=== PATIENT | male | born 1960 | race African-American/Black ===

== ENCOUNTER 2024-08-01 11:00 | Outpatient (CLI) | payer OTHER, MEDICAID | END 2024-08-01 11:01 | disposition home or self-care (01) | LOC: PET 11:00 | PROVIDERS: ATTEND Internal Medicine Hematology & Oncology | DX: C76.0 Malignant neoplasm of head, face and neck (principal); R91.1 Solitary pulmonary nodule | CPT/HCPCS: 78815; A9552 ==

== ENCOUNTER 2024-10-19 01:20 | Observation (INO) | payer OTHER ==
[2024-10-19] MEDS ORDERED: Morphine 4 MG/ML VIAL ONE ×2 (01:49→02:29)
[2024-10-19 01:54] LABS: #Basophils 0.04 10x3/uL (0.0-0.2); %Basophils 0.7 % (0.0-1.0); %Eosinophils 1.6 % (0.0-10.0); %Lymphocytes 48.6 % (21.0-51.0); %Monocytes 10.6 % (0.0-10.0); %Neutrophils 38.3 % (42.0-75.0); Hematocrit 38.4 % (42.0-52.0); Hemoglobin 12.6 g/dL (14.0-18.0); Mean Corpuscular HGB CONC 32.8 g/dL (32.0-36.0); Mean Corpuscular Hemoglobin 30.1 pg (27.0-31.0); Mean Corpuscular Volume 91.6 fL (78.0-98.0); Mean Platelet Volume 9.7 fL (7.4-10.4); Platelet Count 216 10x3/uL (130-400); RBC Distribution Width 15.7 % (11.5-14.5); Red Blood Cell (RBC) Count 4.19 mill/uL (4.70-6.10)
[2024-10-19 02:07] LABS: ALT (SGPT) 26 U/L (8-55); AST (SGOT) 46 U/L (5-34); Albumin 3.3 g/dL (3.4-4.8); Alkaline Phosphatase 88 U/L (40-110); Anion Gap 20 mmol/L (10-20); BUN (Urea Nitrogen) 16 mg/dL (8.4-25.7); Bilirubin, Total 0.6 mg/dL (0.2-1.2); Calc. Creatinine Clearance 0 mL/min (70-130); Calcium 9.2 mg/dL (7.8-10.44); Carbon Dioxide 17 mmol/L (23-31); Chloride 103 mmol/L (98-107); Estimated GFR 61; Glucose 100 mg/dL (80-115); Potassium 4.6 mmol/L (3.5-5.1); Protein, Total 8.3 g/dL (5.8-8.1); Sodium 135 mmol/L (136-145)
[2024-10-19] MEDS ORDERED: hydrALAZINE 20 MG/ML VIAL ONE ×2 (05:22→06:29)
[2024-10-19 06:24] LABS: Bilirubin Negative (Negative); Blood, Urine Negative (Negative); CAUTI Indications for Culture Dysuria,urgency,freq; Clarity Clear (Clear); Glucose, Urine (Dipstick) Normal (Negative); Ketone, Urine Negative (Negative); Leukocyte 75 Leu/uL (Negative); Nitrite Negative (Negative); Protein, Urine (Dipstick) 20 mg/dL (Neg-Trace); RBC/HPF 0-3 HPF (0-3); Specific Gravity, Urine 1.031 (1.002-1.036); Squamous Epithelial None Seen HPF (0-3); Urobilinogen Normal mg/dL (Less than 2); WBC/HPF 21-50 HPF (0-3); pH, Urine 7.5 (5.0-9.0)
[2024-10-19] MEDS ORDERED: Morphine 2 MG/ML VIAL ONE ×2 (06:29→09:04)
[2024-10-19 06:30] LABS: Lactic Acid 1.32 mmol/L (0.5-2.2)
[2024-10-19 06:53] LABS: Bacteria/HPF 1+ HPF (None Seen)
[2024-10-19 06:54] LABS: Urine Culture Reflex Yes Yes
[2024-10-19] MEDS ORDERED: Sodium Chloride 0.9% 100 ML ONE (08:03)
[2024-10-19] MEDS ORDERED: cefTRIAXone (ROCEPHIN) 2 GM VIAL ONE (08:03)
[2024-10-19] MEDS ORDERED: Ondansetron PF 4 MG/2 ML Vial ONE (09:04)
[2024-10-19] MEDS ORDERED: Acetaminophen 325 MG TAB PO PRN (10:36)
[2024-10-19] MEDS ORDERED: Acetaminophen 650 MG Suppository PR PRN (10:36)
[2024-10-19] MEDS ORDERED: Ondansetron PF 4 MG/2 ML Vial IVP PRN (11:16)
[2024-10-19] MEDS ORDERED: Ondansetron ODT 4 MG TAB PO PRN (11:16)
[2024-10-19] MEDS ORDERED: Magnesium Citrate 300 ML BOT PO SCH (11:30)
[2024-10-19] MEDS ORDERED: Milk Of Magnesia 30 ML UDCUP PO SCH (11:30)
[2024-10-19] MEDS: Bisacodyl 10 MG SUPP PR SCH (12:10)
[2024-10-19] MEDS: GoLYTELY 4,000 ml Bottle PO SCH (12:10)
[2024-10-19] MEDS: Mineral Oil ENEMA PR SCH (12:10)
[2024-10-19] MEDS ORDERED: Iopamidol-370 76% 500 ML MDV (1 ML CHARGE) ONE (15:10)
[2024-10-19 16:22] VITALS: BMI 18.6
[2024-10-20] MEDS ORDERED: Ipratropium/Albuterol 3 ML NEB NEB PRN (03:54)
[2024-10-20] MEDS: cefTRIAXone\\ROCEPHIN 1 GM in Sodium Chloride 0.9% 100 ML IVPB SCH (06:55)
[2024-10-20 07:48] LABS: #Basophils 0.04 10x3/uL (0.0-0.2); %Basophils 0.8 % (0.0-1.0); %Eosinophils 2.5 % (0.0-10.0); %Lymphocytes 44.4 % (21.0-51.0); %Monocytes 12.2 % (0.0-10.0); %Neutrophils 39.9 % (42.0-75.0); Hematocrit 33.3 % (42.0-52.0); Hemoglobin 11.1 g/dL (14.0-18.0); Mean Corpuscular HGB CONC 33.3 g/dL (32.0-36.0); Mean Corpuscular Hemoglobin 30.7 pg (27.0-31.0); Mean Platelet Volume 9.8 fL (7.4-10.4); Platelet Count 182 10x3/uL (130-400); RBC Distribution Width 16.1 % (11.5-14.5); Red Blood Cell (RBC) Count 3.62 mill/uL (4.70-6.10)
[2024-10-20 08:03] LABS: Anion Gap 14 mmol/L (10-20); BUN (Urea Nitrogen) 10 mg/dL (8.4-25.7); Calc. Creatinine Clearance 76 mL/min (70-130); Calcium 8.4 mg/dL (7.8-10.44); Carbon Dioxide 22 mmol/L (23-31); Chloride 104 mmol/L (98-107); Estimated GFR 96; Glucose 78 mg/dL (80-115); Potassium 3.5 mmol/L (3.5-5.1); Sodium 136 mmol/L (136-145)
[2024-10-20] MEDS: cloNIDine 0.2 MG TAB PO SCH (09:26)
[2024-10-20] MEDS: Levothyroxine Sodium 25 MCG TAB PO SCH (09:26)
[2024-10-20 13:17] VITALS: BP 128/87; TEMP 98.9
== END 2024-10-20 11:20 | disposition home or self-care (01) ==
LOC: ERS 01:20 → T4-A 10:09
PROVIDERS: ADMIT Internal Medicine; ATTEND Internal Medicine
DX: N39.0 Urinary tract infection, site not specified (principal); K56.41 Fecal impaction; I10 Essential (primary) hypertension; E03.9 Hypothyroidism, unspecified; E44.0 Moderate protein-calorie malnutrition; E88.09 Other disorders of plasma-protein metabolism, not elsewhere classified; Z85.828 Personal history of other malignant neoplasm of skin; Z88.0 Allergy status to penicillin; Z79.890 Hormone replacement therapy; Z79.2 Long term (current) use of antibiotics; Z79.899 Other long term (current) drug therapy
CPT/HCPCS: 74177; 80048; 81001; 83605; 85025; 87077; 87086; 87186; 93005; 96376; G0378 ×3; J0360; J0696 ×2; J1642; J2270; J2272; J2405; Q9967; 36415; 80053; 84443; 96374; 96375

== ENCOUNTER 2025-06-28 13:53 | Outpatient (CLI) | payer OTHER | END 2025-06-28 13:54 | disposition home or self-care (01) | LOC: MRI 13:53 | PROVIDERS: ATTEND Internal Medicine Hematology & Oncology | DX: C76.0 Malignant neoplasm of head, face and neck (principal) | CPT/HCPCS: 70553; 76376 ==

== ENCOUNTER 2025-07-16 11:00 | Outpatient (CLI) | payer OTHER, MEDICAID | END 2025-07-16 11:01 | disposition home or self-care (01) | LOC: PET 11:00 | PROVIDERS: ATTEND Internal Medicine Hematology & Oncology | DX: C76.0 Malignant neoplasm of head, face and neck (principal); M89.9 Disorder of bone, unspecified; R93.89 Abnormal findings on diagnostic imaging of other specified body structures | CPT/HCPCS: 78815; A9552 ==

== ENCOUNTER 2025-08-24 09:03 | Inpatient (IN) | payer OTHER, MEDICAID ==
[2025-08-24] MEDS ORDERED: Ondansetron PF 4 MG/2 ML Vial ONE (09:52)
[2025-08-24 10:07] LABS: #Basophils 0.04 10x3/uL (0.0-0.2); #Eosinophils 0.19 10x3/uL (0.0-0.7); #Monocytes 0.58 10x3/uL (0.11-0.59); #Neutrophils 3.04 10x3/uL (1.40-6.50); %Basophils 0.7 % (0.0-1.0); %Eosinophils 3.3 % (0.0-10.0); %Lymphocytes 33.3 % (21.0-51.0); %Monocytes 10.0 % (0.0-10.0); %Neutrophils 52.4 % (42.0-75.0); Hematocrit 41.2 % (42.0-52.0); Hemoglobin 13.4 g/dL (14.0-18.0); Mean Corpuscular Hemoglobin 29.9 pg (27.0-31.0); Mean Corpuscular Volume 92.0 fL (78.0-98.0); Platelet Count 234 10x3/uL (130-400); Red Blood Cell (RBC) Count 4.48 mill/uL (4.70-6.10); White Blood Cell (WBC) Count 5.80 10x3/uL (4.8-10.8)
[2025-08-24 10:22] LABS: Actual Bicarbonate (HCO3v) 20.9 mEq/L (22-28); Base Excess -2.8 mEq/L (-2.0 to +3.0); Calcium, Ionized (venous) 1.05 mmol/L (1.16-1.32); Chloride (VBG) 99 mmol/L (98-106); Hematocrit-VBG 45 % (42.0-52.0); Hemoglobin (Hb) 15.2 g/dL (12.6-17.4); Potassium (VBG) 3.86 mmol/L (3.70-5.30); Sodium 139 mmol/L (133-146)
[2025-08-24 10:26] LABS: ALT (SGPT) 17 U/L (Less than 45); AST (SGOT) 36 U/L (11-34); Albumin 4.3 g/dL (3.1-4.5); Alkaline Phosphatase 81 U/L (40-110); Anion Gap 24 mmol/L (10-20); BUN (Urea Nitrogen) 13 mg/dL (8.4-25.7); Bilirubin, Total 0.8 mg/dL (0.3-1.2); Calc. Creatinine Clearance 0 mL/min (70-130); Calcium 9.6 mg/dL (7.8-10.44); Carbon Dioxide 18 mmol/L (23-31); Chloride 98 mmol/L (98-107); Globulin 4.3 g/dL (2.4-3.5); Glucose 90 mg/dL (80-115); Potassium 3.8 mmol/L (3.5-5.1); Sodium 136 mmol/L (136-145)
[2025-08-24] MEDS ORDERED: Droperidol 5 MG/2 ML VIAL ONE (10:29)
[2025-08-24] MEDS ORDERED: Cefepime 2 GM VIAL ONE (10:49)
[2025-08-24] MEDS ORDERED: Vancomycin 1 GM/200 ML (FROZEN) BAG ONE (10:58)
[2025-08-24 12:05] LABS: Bacteria/HPF None Seen HPF (None Seen); CAUTI Indications for Culture Acute Hematuria; Glucose, Urine (Dipstick) Normal (Negative); Leukocyte Negative Leu/uL (Negative); Protein, Urine (Dipstick) Negative (Neg-Trace); RBC/HPF None Seen HPF (0-3); Specific Gravity, Urine 1.017 (1.002-1.036); WBC/HPF 0-3 HPF (0-3)
[2025-08-24 12:08] LABS: Urine Culture Reflex No No
[2025-08-24] MEDS ORDERED: Iopamidol-370 76% 500 ML MDV (1 ML CHARGE) ONE (14:30)
[2025-08-24] MEDS ORDERED: Acetaminophen 325 MG TAB PO PRN (14:31)
[2025-08-24] MEDS ORDERED: Ondansetron PF 4 MG/2 ML Vial IVP PRN (14:45)
[2025-08-24 16:55] VITALS: BMI 17.4
[2025-08-24] MEDS: Lactulose 20 GM (30 mL) UDCUP PO SCH (17:32)
[2025-08-24] MEDS: oxyCODONE 5 MG TAB PO SCH (20:05)
[2025-08-24] MEDS: carBAMazepine 200 MG TAB PO SCH (20:06)
[2025-08-24] MEDS: Mineral Oil ENEMA PR SCH (21:56)
[2025-08-24] MEDS: Lisinopril 20 MG TAB PO SCH (21:57)
[2025-08-25 05:26] LABS: #Basophils 0.05 10x3/uL (0.0-0.2); #Eosinophils 0.19 10x3/uL (0.0-0.7); #Monocytes 0.71 10x3/uL (0.11-0.59); #Neutrophils 2.00 10x3/uL (1.40-6.50); %Basophils 1.0 % (0.0-1.0); %Eosinophils 3.9 % (0.0-10.0); %Lymphocytes 40.0 % (21.0-51.0); %Monocytes 14.4 % (0.0-10.0); %Neutrophils 40.5 % (42.0-75.0); Hematocrit 37.6 % (42.0-52.0); Hemoglobin 12.2 g/dL (14.0-18.0); Mean Corpuscular Hemoglobin 29.7 pg (27.0-31.0); Mean Corpuscular Volume 91.5 fL (78.0-98.0); Platelet Count 167 10x3/uL (130-400); Red Blood Cell (RBC) Count 4.11 mill/uL (4.70-6.10); White Blood Cell (WBC) Count 4.93 10x3/uL (4.8-10.8)
[2025-08-25 05:46] LABS: Vancomycin, Random 14.8 ug/mL (See Comment)
[2025-08-25 05:48] LABS: ALT (SGPT) 15 U/L (Less than 45); AST (SGOT) 31 U/L (11-34); Albumin 3.6 g/dL (3.1-4.5); Alkaline Phosphatase 63 U/L (40-110); Anion Gap 14 mmol/L (10-20); BUN (Urea Nitrogen) 10 mg/dL (8.4-25.7); Bilirubin, Total 0.6 mg/dL (0.3-1.2); Calc. Creatinine Clearance 46 mL/min (70-130); Calcium 8.8 mg/dL (7.8-10.44); Carbon Dioxide 25 mmol/L (23-31); Chloride 103 mmol/L (98-107); Globulin 3.5 g/dL (2.4-3.5); Glucose 79 mg/dL (80-115); Potassium 4.8 mmol/L (3.5-5.1); Sodium 137 mmol/L (136-145)
[2025-08-25] MEDS: cloNIDine 0.2mg/24 Hour PATCH TD SCH (09:53)
[2025-08-25] MEDS: Enoxaparin 40 MG (0.4 mL) SYRINGE SC SCH (09:54)
[2025-08-25] MEDS: Lisinopril 20 MG TAB PO SCH (09:55)
[2025-08-25 13:33] VITALS: BP 161/97; TEMP 98.1
[2025-08-25] MEDS ORDERED: Vancomycin 1 GM in Premix 1 BAG IVPB SCH (21:00)
== END 2025-08-25 13:30 | disposition home or self-care (01) | DRG 392 ==
LOC: ERS 09:03 → 2NO 14:04
PROVIDERS: ADMIT Family Medicine; ATTEND Internal Medicine
DX: K59.03 Drug induced constipation (principal); E87.20 Acidosis, unspecified; E46 Unspecified protein-calorie malnutrition; Z68.1 Body mass index [BMI] 19.9 or less, adult; R65.10 Systemic inflammatory response syndrome (SIRS) of non-infectious origin without acute organ dysfunction; E03.9 Hypothyroidism, unspecified; I10 Essential (primary) hypertension; T40.2X5A Adverse effect of other opioids, initial encounter; E86.0 Dehydration; R33.9 Retention of urine, unspecified; R79.89 Other specified abnormal findings of blood chemistry; G89.29 Other chronic pain; C76.0 Malignant neoplasm of head, face and neck; K21.9 Gastro-esophageal reflux disease without esophagitis
CPT/HCPCS: 36415; 71045; 74177; 80053; 80202; 81001; 82805; 83605; 84145; 85025; 86141; 87040; 87081; 93005; 93010; 94760; 96361; 96365; 96367; 96375; J0692; J1650; J1790; J2405; J3373; J7050; J7120; Q9967